=== PATIENT | male | born 1960 | race Caucasian/White ===

== ENCOUNTER 2020-08-02 16:49 | Emergency (ER) | payer BC ==
[~2020-08-02] VITALS: Ht 185.4 cm; Wt 87.3 kg
[2020-08-02 16:58] VITALS: TEMP 98.6
[2020-08-02 18:18] LABS: MEAN CELL VOLUME 113 fl (80.0-100.0); MEAN CORPUSCULAR HGB CONC 34 g/dl (33.0-37.0); MEAN PLATELET VOLUME 10.7 fl (7.4-10.4); PLATELET COUNT 263 K/mm3 (130-400); RED BLOOD COUNT 2.13 M/mm3 (4.20-5.60); REDCELL DISTRIBUTION WIDTH-CV 32.4 % (11.5-14.5)
[2020-08-02 18:21] LABS: HEMOGLOBIN 8.2 g/dl (13.5-18.0); MEAN CORPUSCULAR HEMOGLOBIN 38 pg (27.0-31.0)
[2020-08-02 18:22] LABS: INR 1.1 (0.8-3.0)
[2020-08-02 18:26] LABS: BILIRUBIN,TOTAL 5.1 mg/dL (0.0-1.0); C-REACTIVE PROTEIN 1.4 mg/dL (0.0-0.9); CALCIUM 8.5 mg/dL (8.4-10.2); CREATININE, serum 1.12 (0.66-1.25); POTASSIUM 3.9 mmol/L (3.4-5.0)
[2020-08-02 19:43] LABS: RETIC # 0.51 M/mm3 (0.02-0.16)
[2020-08-02 19:48] LABS: COLLECTION METHOD CLEAN CATCH
[2020-08-02 19:55] LABS: BAND 5 % (0-10); EOSINOPHIL 2 % (0-4); LYMPHOCYTE 15 % (20.0-51.0); METAMYELOCYTE 1 % (0-0); NEUTROPHILS 70 % (42.0-75.2); NUCLEATED RED BLOOD CELL 98 (0-6)
[2020-08-02 19:57] LABS: ANISOCYTOSIS 3+; PLATELET ESTIMATE NORMAL (NORMAL)
[2020-08-02 19:59] LABS: MUCOUS Present /lpf; PH 5 (5-8); SQUAMOUS EPITHELIAL 0-2 /hpf; URINE APPEARANCE Hazy; URINE BACTERIA None Seen /hpf; URINE BILIRUBIN Negative (NEGATIVE); URINE BLOOD 3+ (NEGATIVE); URINE COLOR Yellow; URINE GLUCOSE Negative (NEGATIVE); URINE KETONE Negative (NEGATIVE); URINE LEUKOCYTE ESTERASE Negative (NEGATIVE); URINE NITRATE Negative (NEGATIVE); URINE PROTEIN(semi-quant) 1+ (NEGATIVE); URINE UROBILINOGEN Negative (NEGATIVE)
[2020-08-02 20:55] LABS: MONOSCREEN NEGATIVE
[2020-08-02] MEDS ORDERED: PREDNISONE20 MG PO (21:42)
[2020-08-02 21:50] VITALS: BP 119/70; PULSE 98
== END 2020-08-02 22:06 | disposition home or self-care (01) ==
LOC: COL.ER 16:49
PROVIDERS: Emergency Medicine
DX: D58.9 Hereditary hemolytic anemia, unspecified (principal); R16.1 Splenomegaly, not elsewhere classified; R17 Unspecified jaundice
CPT/HCPCS: J7030; J7512; Q9967

== ENCOUNTER → 2020-08-04 | Outpatient (CLI) | payer BC ==
[~2020-08-04] MED LIST: PREDNISONE20 MG PO
[2020-08-04 11:39] LABS: MEAN CORPUSCULAR HGB CONC 33 g/dl (33.0-37.0); MEAN PLATELET VOLUME 10.5 fl (7.4-10.4); PLATELET COUNT 266 K/mm3 (130-400); RED BLOOD COUNT 2.19 M/mm3 (4.20-5.60)
[2020-08-04 11:46] LABS: HEMATOCRIT 26.4 % (42.0-52.0); HEMOGLOBIN 8.6 g/dl (13.5-18.0); MEAN CELL VOLUME 121 fl (80.0-100.0); MEAN CORPUSCULAR HEMOGLOBIN 39 pg (27.0-31.0)
== END ==
LOC: COL.LAB
DX: D58.9 Hereditary hemolytic anemia, unspecified (principal)